=== PATIENT | male | born 1925 | race African-American/Black ===

== ENCOUNTER 2016-07-03 14:40 | Emergency (ER) | payer MEDICARE ==
[~2016-07-03] VITALS: Ht 167.6 cm; Wt 68.0 kg
[2016-07-03] MEDS ORDERED: AMLO2.5T45 PO (15:08)
[2016-07-03] MEDS ORDERED: FINA5TAB11 PO (15:08)
[2016-07-03] MEDS ORDERED: SENN-22 PO (15:08)
[2016-07-03] MEDS ORDERED: ASPI-1035 PO (15:08)
[2016-07-03] MEDS ORDERED: ATOR20TA65 PO (15:08)
[2016-07-03] MEDS ORDERED: GABA-529 PO (15:08)
[2016-07-03] MEDS ORDERED: MEMA1CAP PO (15:08)
[2016-07-03] MEDS ORDERED: TRAZ-129 PO (15:08)
[2016-07-03] MEDS ORDERED: DOCU-138 PO (15:08)
[2016-07-03] MEDS ORDERED: ACETAMINOPHEN 500MG TABLET PO ONE (17:15)
[2016-07-03] MEDS ORDERED: INSULIN REGULAR (HUMULIN R) 300UNITS/3ML SUBCUT ONE (17:15)
[2016-07-03 18:06] VITALS: BP 153/67
== END 2016-07-03 18:59 | disposition home or self-care (01) ==
LOC: ER 15:15
DX: M79.671 Pain in right foot (principal); I10 Essential (primary) hypertension; E11.9 Type 2 diabetes mellitus without complications; M54.2 Cervicalgia; E78.00 Pure hypercholesterolemia, unspecified; G47.00 Insomnia, unspecified; Z79.4 Long term (current) use of insulin; Z79.82 Long term (current) use of aspirin
CPT/HCPCS: 82962; 96372; 99283; J1815